=== PATIENT | female | born 1995 | race Caucasian/White ===

== ENCOUNTER 2019-10-17 16:39 | Emergency (ER) | payer OTHER ==
[2019-10-17 16:44] VITALS: BP 124/78
[2019-10-17] MEDS ORDERED: IBUPROFEN 600 MG TABLET PO STA (16:52)
--- NOTE | 2019-10-17 16:54 | ED Physician Documentation ---
PD HPI HEAD INJURY - Stated complaint Stated Complaint: FOREHEAD LAC - Chief complaint Chief Complaint: Laceration - History obtained from History obtained from: Patient (24-year-old female generally healthy presented to the emergency room with a laceration to the left forehead of 1 cm.She was slapped by wound turbine. No loss consciousness. No active bleeding. There is a small area of abrasion just underneath the left eye. No foreign body sensation to the left eye. Patient is able to talk with no difficulty. No neck pain. No loss consciousness. In emergency room patient is alert and oriented x3, GCS 15. She is able to joke around) - History of Present Illness Mechanism of head injury: Blow Where head injury occurred: Work Timing - onset: Today Pain level max: 4 Pain level now: 4 Location of injury: Left (face) Review of Systems Ten Systems: 10 systems reviewed and negative Constitutional: reports: Reviewed and negative Eyes: reports: Reviewed and negative Ears: reports: Reviewed and negative Nose: reports: Reviewed and negative Throat: reports: Reviewed and negative Cardiac: reports: Reviewed and negative Respiratory: reports: Reviewed and negative GI: reports: Reviewed and negative : reports: Reviewed and negative Skin: reports: Laceration (s) Musculoskeletal: reports: Reviewed and negative Neurologic: reports: Reviewed and negative Psychiatric: reports: Reviewed and negative Endocrine: reports: Reviewed and negative Immunocompromised: reports: Reviewed and negative PD PAST MEDICAL HISTORY - Past Medical History Past Medical History: No - Allergies Allergies/Adverse Reactions: Allergies Allergy/AdvReac Type Severity Reaction Status Date / Time No Known Drug Allergies Allergy Verified 10/17/19 16:41 PD ED PE NORMAL - Vitals Vital signs reviewed: Yes - General General: Alert and oriented X 3, No acute distress, Well developed/nourished - HEENT HEENT: PERRL, EOMI, Ears normal, Moist mucous membranes, Other (1 cm laceration to the left forehead, soft tissue contusion to the left maxillary area, no bony crepitation underneath.) - Neck Neck: Supple, no meningeal sign, No bony TTP, No adenopathy - Cardiac Cardiac: RRR, No murmur - Respiratory Respiratory: Clear bilaterally - Abdomen Abdomen: Normal bowel sounds, Soft, Non tender, Non distended - Derm Derm: No rash, Other (1 cm laceration to the left forehead, soft tissue contusion to the left maxillary area, no bony crepitation underneath.) - Extremities Extremities: No deformity - Neuro Neuro: Alert and oriented X 3 - Psych Psych: Normal mood, Normal affect Results - Vitals Vitals: Vital Signs - 24 hr 10/17/19 16:42 Temperature 36.9 C Heart Rate 80 Respiratory 14 Rate Blood Pressure 124/78 O2 Saturation 100 Oxygen O2 Source Room air Procedures - Laceration (location) Face Wound type: Curved Neurovascular status: Sensory intact, Motor intact, Vascular intact Wound Preparation: Hibiclens Skin layer closure: Dermabond PD MEDICAL DECISION MAKING - ED course Complexity details: d/w patient ED course: Laceration was Dermabond. Patient tolerated really well. I do not appreciate any fracture underneath the laceration and contusion of the maxillary area. Patient is asked to continue taking ibuprofen for pain, ice the area of tenderness. Follow-up with primary care doctor in 7 days for wound recheck. Departure - Departure Disposition: 01 Home, Self Care Clinical Impression: Facial laceration Qualifiers: Encounter type: initial encounter Qualified Code(s): S01.81XA - Laceration without foreign body of other part of head, initial encounter Condition: Stable Instructions: ED Laceration Facial Skin Glue Comments: Please take ibuprofen for pain as needed every 6 hours. Follow up with primary care doctor for wound check in 7 days
== END 2019-10-17 17:01 | disposition home or self-care (01) ==
LOC: ED 16:39
DX: S01.81XA Laceration without foreign body of other part of head, initial encounter (principal); W22.09XA Striking against other stationary object, initial encounter; Y93.01 Activity, walking, marching and hiking
CPT/HCPCS: 12011; 99282; 99283; A9270

== ENCOUNTER 2020-07-04 12:56 | Emergency (ER) | payer OTHER ==
[2020-07-04 13:12] VITALS: BP 124/67
[2020-07-04] MEDS ORDERED: BUFFERED LIDOCAINE 10 ML SYRINGE SUBQ STA (13:12)
[2020-07-04] MEDS ORDERED: BACITRACIN ZINC OINT 1 PACKET TOP STA (13:13)
--- NOTE | 2020-07-04 13:16 | ED Physician Documentation ---
History of Present Illness - Stated complaint Stated Complaint: LT THUMB LAC - Chief complaint Chief Complaint: Trauma Ext - Additonal information Additional information: 25-year-old female presents to the emergency department for evaluation of a left lateral thumb laceration that occurred just prior to arrival. A ladder smashed her thumb and she has an approximately 1.25 cm laceration on the proximal side of the lateral thumb. Patient's tetanus is up-to-date. pt is right hand dominate Review of Systems Constitutional: reports: Reviewed and negative Ears: reports: Reviewed and negative Nose: reports: Reviewed and negative Throat: reports: Reviewed and negative Cardiac: reports: Reviewed and negative Respiratory: reports: Reviewed and negative GI: reports: Reviewed and negative Skin: reports: Laceration (s) (left thumb) PD PAST MEDICAL HISTORY - Allergies Allergies/Adverse Reactions: Allergies Allergy/AdvReac Type Severity Reaction Status Date / Time No Known Drug Allergies Allergy Verified 07/04/20 13:12 PD ED PE EXPANDED - General General: Alert, No acute distress - Extremities Extremities: Left hand (1.25 cm laceration proximal left lateral thumb. No snuffbox tenderness. Normal flexion and extension at MCP and DIP joint. Mild swelling.) EMELY UE/Hands Visual: 1 - laceration Results - Vitals Vitals: Vital Signs - 24 hr 07/04/20 13:09 Temperature 36.9 C Heart Rate 87 Respiratory 16 Rate Blood Pressure 124/67 O2 Saturation 100 Oxygen O2 Source Room air - Rads (name of study) left fingers Radiology: EMP read indepedently (No acute fracture dislocation) Procedures - Laceration (location) left thumb Length in cm: 1.2 Wound type: Linear Neurovascular status: Sensory intact, Motor intact, Vascular intact Tendon involvement: Tendon intact Anesthesia: Lidocaine 1% Wound Preparation: Chlorhexadine, Irrigated copiously NS Skin layer closure: Nylon, Size #-0 - enter number (4), Sutures - enter # (3) Other: Patient tolerated well, No complications, Neurovascular intact, Dressing applied, Tetanus UTD Complexity: Simple PD MEDICAL DECISION MAKING - ED course Complexity details: reviewed results, d/w patient ED course: 25-year-old female presents to the emergency department for a left thumb laceration sustained just prior to arrival when a ladder smashed her finger. The x-ray shows no acute fracture or dislocation. The laceration was closed easily with 3 sutures. Routine return precautions and wound care discussed Departure - Departure Disposition: 01 Home, Self Care Clinical Impression: Thumb laceration Qualifiers: Encounter type: initial encounter Damage to nail status: without damage Foreign body presence: without foreign body Laterality: left Qualified Code(s): S61.012A - Laceration without foreign body of left thumb without damage to nail, initial encounter Condition: Stable Record reviewed to determine appropriate education?: Yes Instructions: ED Laceration Hand Comments: Your suture should be removed in about 7 days. This can be done at [facility] or any urgent care. In 24 hours you may gently wash your hand with warm soap and water, pat dry apply any antibiotic ointment ointment and a simple bandage. Please do not submerge her hand in dirty water until the laceration is healed.
--- NOTE | 2020-07-04 13:43 | XRAY Report ---
PROCEDURE: Finger(s) LT INDICATIONS: Thumb injury, trauma TECHNIQUE: AP hand, 2 views of the first finger(s) acquired. COMPARISON: None FINDINGS: Bones: There is no fracture or dislocation. No suspicious bony lesions. Soft tissues: No radiopaque foreign body or suspicious soft tissue density. IMPRESSION: No acute finding. Reviewed by: Jovan Kwon MD on 07/04/2020 1:41 PM PDT Approved by: Jovan Kwon MD on 07/04/2020 1:41 PM PDT Station ID: [id number]
== END 2020-07-04 14:17 | disposition home or self-care (01) ==
LOC: ED 12:56
DX: S61.012A Laceration without foreign body of left thumb without damage to nail, initial encounter (principal); W23.0XXA Caught, crushed, jammed, or pinched between moving objects, initial encounter
CPT/HCPCS: 12001; 73140; 99281; 99283; A9270